=== PATIENT | male | born 1990 ===

== ENCOUNTER 2023-01-08 22:54 | Emergency (ER) | payer OTHER ==
[2023-01-08] MEDS ORDERED: Lactated Ringers 1,000 ML IV SCH (23:15)
[2023-01-08 23:43] LABS: A/G RATIO 1.2 (0.9-1.6); ALBUMIN 3.9 g/dL (3.4-5.0); BILIRUBIN TOTAL 0.2 mg/dL (0.2-1.0); CARBON DIOXIDE,CO2 25.3 mmol/L (21.0-32.0); EST CRCL DRUG DOSING (CG) 85.35 mL/min; POTASSIUM,K 3.3 mmol/L (3.5-5.1); PROTEIN TOTAL,TP 7.2 g/dL (6.4-8.2)
[2023-01-09] MEDS ORDERED: Ibuprofen 400 MG Tab PO ONE (00:26)
[2023-01-09] MEDS ORDERED: Acetaminophen 325 MG Tab PO ONE (00:26)
== END 2023-01-09 01:06 | disposition home or self-care (01) ==
LOC: MW.ED 22:54
DX: T75.4XXA Electrocution, initial encounter (principal); Z91.040 Latex allergy status; Z88.5 Allergy status to narcotic agent
CPT/HCPCS: 36415; 80053; 82550; 84484; 93005; 99285; A9270; J7120; 93010; 99283